=== PATIENT | female | born 2005 | race Caucasian/White ===

== ENCOUNTER 2023-10-21 17:23 | Emergency (ER) | payer BC, OTHER ==
[2023-10-21 17:36] VITALS: BP 160/100; O2SAT 100
--- NOTE | 2023-10-21 18:34 | XRAY Report ---
PROCEDURE: Ankle 3+V LT INDICATIONS: Trauma TECHNIQUE: 3 views of the ankle were acquired. COMPARISON: None. FINDINGS: Bones: No acute fractures or dislocations. Ankle mortise is normally aligned. No suspicious bony l esions. Soft tissues: Mild soft tissue edema surrounding the ankle. IMPRESSION: No acute osseous abnormality. If there is clinical concern or persistent symptoms, additional imaging such as repeat radiographs or advanced imaging (e.g. CT, MRI) may be helpful for further evaluation. Reviewed by: Pillo Rutledge MD on 10/21/2023 6:33 PM PDT Approved by: Pillo Rutledge MD on 10/21/2023 6:33 PM PDT Station ID: [id number]
--- NOTE | 2023-10-21 18:35 | XRAY Report ---
PROCEDURE: Foot 3+V LT INDICATIONS: Trauma TECHNIQUE: 3 views of the foot were acquired. COMPARISON: None. FINDINGS: Bones: No acute fractures or dislocations. No suspicious bony lesions. Soft tissues: No suspicious soft tissue calcifications. IMPRESSION: No acute osseous abnormality. If there is clinical concern or persistent symptoms, additional imaging such as repeat radiographs or advanced imaging (e.g. CT, MRI) may be helpful for further evaluation. Reviewed by: Pillo Rutledge MD on 10/21/2023 6:33 PM PDT Approved by: Pillo Rutledge MD on 10/21/2023 6:33 PM PDT Station ID: [id number]
--- NOTE | 2023-10-21 18:53 | ED Physician Documentation ---
History of Present Illness - Stated complaint Stated Complaint: LT FOOT PX - Chief complaint Chief Complaint: Ext Problem - History obtained from History obtained from: Patient - History of Present Illness Timing: How many weeks ago (2) Pain level max: 5 Pain level now: 3 - Additonal information Additional information: 18-year-old female presents to the emergency department stating that about 2 weeks ago she injured her left ankle, she states that the left ankle is feeling better but is having lateral left foot pain. Worse with walking, better with rest. No swelling. No bruising. No numbness or tingling. No other injuries. Denies any possibility of . Review of Systems Constitutional: denies: Fever, Chills Respiratory: denies: Cough GI: denies: Nausea, Vomiting, Diarrhea Skin: denies: Rash Musculoskeletal: denies: Neck pain, Back pain Neurologic: denies: Headache PD PAST MEDICAL HISTORY - Past Medical History Past Medical History: Yes - Past Surgical History Past Surgical History: Yes - Present Medications Home Medications: Ambulatory Orders Medication Instructions Recorded Confirmed Famotidine 40 mg PO DAILY 10/21/23 10/21/23 Montelukast [Singulair] 10 mg PO DAILY 10/21/23 10/21/23 - Allergies Allergies/Adverse Reactions: Allergies Allergy/AdvReac Type Severity Reaction Status Date / Time No Known Drug Allergies Allergy Verified 10/21/23 17:32 - Social History Does the pt smoke?: No Smoking Status: Never smoker Does the pt drink ETOH?: No Does the pt have substance abuse?: No - Immunizations Immunizations are current?: Yes - POLST Patient has POLST: No PD ED PE NORMAL - Vitals Vital signs reviewed: Yes - General General: Alert and oriented X 3, No acute distress - HEENT HEENT: Moist mucous membranes - Neck Neck: Supple, no meningeal sign - Derm Derm: Warm and dry - Extremities Extremities: Other (L foot - No abnormalities of the left ankle. No tenderness or swelling. Neurovascular intact. Normal examination of the left foot. No swelling, no tenderness, no bruising.) - Neuro Neuro: Alert and oriented X 3 - Psych Psych: Normal mood, Normal affect Results - Vitals Vitals: Vital Signs - 24 hr 10/21/23 17:33 Temperature 36.8 C Heart Rate 110 H Respiratory 16 Rate Blood Pressure 160/100 H O2 Saturation 100 Oxygen O2 Source Room air - Rads (name of study) Left foot x-ray Relevant Findings:: Final report received, See rad report Left ankle x-ray Relevant Findings:: Final report received, See rad report PD Medical Decision Making - ED course Complexity details: reviewed results, re-evaluated patient, considered differential, d/w patient ED course: No acute findings on the left ankle and foot x-ray. Patient placed in a postoperative shoe for comfort. Will treat as a foot sprain. No tenderness at the base of the fifth metatarsal. Neurovascular intact. Patient will follow-up with her PCP if she fails to improve as expected. Patient counseled regarding signs and symptoms for which I believe and urgent re-evaluation would be necessary. Patient with good understanding of and agreement to plan and is comfortable going home at this time This document was made in part using voice recognition software. While efforts are made to proofread this document, sound alike and grammatical errors may occur. Departure - Departure Disposition: 01 Home, Self Care Clinical Impression: Sprain of foot, left Qualifiers: Encounter type: initial encounter Qualified Code(s): S93.602A - Unspecified sprain of left foot, initial encounter Condition: Good Instructions: ED Sprain Foot Follow-Up: your,doctor in 1 week [Other] Comments: Your x-rays do not show any acute abnormalities today. There is no evidence of fractures or healing fractures. This appears to be a sprain. You can use the postoperative shoe for comfort. Please follow-up with your doctor as needed for any further care. Forms: PCP List Discharge Date/Time: 10/21/23 19:09
== END 2023-10-21 19:09 | disposition home or self-care (01) ==
LOC: ED 17:23
DX: S93.602A Unspecified sprain of left foot, initial encounter (principal); X50.1XXA Overexertion from prolonged static or awkward postures, initial encounter
CPT/HCPCS: 99283